=== PATIENT | male | born 1990 | race Caucasian/White ===

== ENCOUNTER 2019-07-03 00:47 | Emergency (ER) | payer OTHER ==
[2019-07-03] MEDS ORDERED: XYLOCAINE 1% HCL 20 ML MDV IJ ONE (00:48)
--- NOTE | 2019-07-03 00:59 | ERPHSYRPT ---
- History of Present Illness Time Seen by Provider: 07/03/19 00:59 Source: patient Exam Limitations: no limitations Patient Subjective Stated Complaint: Sore throat Physician History: sore sore and fullness in the left ear or for last 2 days. Patient's daughter had a strep throat a week ago. Patient is from out of town. Came to the ER for persistent sore throat. Timing/Duration: gradual onset Severity: moderate ENT Location: ear (L) Prearrival Treatment: no prearrival treatment Modifying Factors: Improves With: other (swallowing) Associated Symptoms: ear pain (L), chills, sore throat Allergies/Adverse Reactions: codeine Allergy (Intermediate, Verified 07/03/19 01:04) heart racing - Review of Systems Constitutional: Chills, No Fever Eyes: No Symptoms Ears, Nose, & Throat: No Symptoms, Ear Pain, Throat Pain Respiratory: No Cough, No Dyspnea Cardiac: No Chest Pain, No Edema, No Syncope Abdominal/Gastrointestinal: No Abdominal Pain, No Nausea, No Vomiting, No Diarrhea Genitourinary Symptoms: No Dysuria Musculoskeletal: No Back Pain, No Neck Pain Skin: No Rash Neurological: No Dizziness, No Focal Weakness, No Sensory Changes Psychological: No Symptoms Endocrine: No Symptoms All Other Systems: Reviewed and Negative - Nursing Vital Signs Nursing Vital Signs: Pain Scale Pain Intensity 7 - Physical Exam General Appearance: no apparent distress, alert Eye Exam: bilateral eye: PERRL, EOMI Ear Exam: left ear: TM red Nasal Exam: normal inspection Throat Exam: moist mucus membranes, pharynx swelling (pharyngeal erythema.), No tonsillar exudate Neck Exam: normal inspection, non-tender, supple Cardiovascular/Respiratory Exam: chest non-tender, normal breath sounds, regular rate/rhythm, heart sounds normal Abdominal Exam: non-tender, soft Neurologic Exam: alert, oriented x 3, sensation nml, No motor deficits Skin Exam: normal color, warm, dry SpO2 Interpretation: normal O2 Delivery: Room Air - Course Nursing assessment & vital signs reviewed: Yes Ordered Tests: Medication Summary Discontinued Medications Generic Name Dose Route Start Last Admin Trade Name Freq PRN Reason Stop Dose Admin Ceftriaxone Sodium 1,000 mg 07/03/19 01:12 Rocephin 1000 Mg Inj IM 07/03/19 01:13 STAT ONE - Progress Progress: unchanged Counseled pt/family regarding: diagnosis, need for follow-up - Departure Departure Disposition: Home Clinical Impression: Acute left otitis media Acute pharyngitis Qualifiers: Pharyngitis/tonsillitis etiology: unspecified etiology Qualified Code(s): J02.9 - Acute pharyngitis, unspecified Condition: Stable Critical Care Time: No Instructions: Sore Throat, Adult (DC), Ear Infections (Otitis Media) (DC) Plan of Treatment: Take medicine as prescribed. See PCP in one to 2 days. Prescriptions: Penicillin V Potassium 500 mg PO TID 7 Days #21 tablet
[2019-07-03] MEDS ORDERED: Rocephin 1000 MG INJ IM ONE (01:12)
[2019-07-03] MEDS ORDERED: MOTRIN 400 MG PO ONE (01:13)
[2019-07-03] MEDS ORDERED: Pepcid 20 MG PO ONE (01:13)
[2019-07-03] MEDS ORDERED: DELTASONE 20 MG PO ONE (01:14)
[2019-07-03] MEDS ORDERED: MOTRIN 400 MG ONE (01:23)
[2019-07-03] MEDS ORDERED: Pepcid 20 MG ONE (01:23)
[2019-07-03] MEDS ORDERED: DELTASONE 20 MG ONE (01:23)
[2019-07-03] MEDS ORDERED: Rocephin 1000 MG INJ ONE (01:23)
[2019-07-03 01:25] VITALS: O2SAT 97
[2019-07-03 01:47] VITALS: BP 133/83; PULSE 74
== END 2019-07-03 01:54 | disposition home or self-care (01) ==
LOC: ED 00:47
DX: H65.192 Other acute nonsuppurative otitis media, left ear (principal); J02.9 Acute pharyngitis, unspecified
CPT/HCPCS: 96372; 99284; J0696; A9270-GY